=== PATIENT | male | born 1980 | race Caucasian/White ===

== ENCOUNTER 2019-01-13 10:44 | Emergency (ER) | payer BC ==
[2019-01-13 11:06] VITALS: BP 140/99
--- NOTE | 2019-01-13 12:09 | EDM.PDOCBH ---
ED HPI GENERAL MEDICAL PROBLEM - General Chief Complaint: Behavioral/Psych Stated Complaint: HEAVY BREATHING,SHARP PAIN ALL OVER FACE Time Seen by Provider: 01/13/19 11:34 Source of Information: Reports: Patient, Old Records History Limitations: Reports: No Limitations - History of Present Illness INITIAL COMMENTS - FREE TEXT/NARRATIVE: 38-year-old male presents for evaluation and treatment of anxiety. Patient reports about 1-2 hours prior to arrival in the ER he was checking some frustrating emails. He states that he began to feel anxious. He felt reports his face felt hot and heat Nepali start stabbing pains in his face. States he had a hard time breathing. He states that the symptoms are significantly improved now. States he is nearly back to his baseline. He reports her palpitations. And asked if he had any chest pain he states "kind of ". He states a history of neck and back pain is not sure if that's what he was experiencing. Patient acknowledges that he struggles with anxiety. He takes Zoloft 50 mg daily. He did taken an additional 25 mg by accident today. Patient reports history of digestive issues and states he has problems with heart. Reports a significant family history of heart disease. He states that he had several uncles that of her disease in their mid to early 40s. States his father lived into his 70s. Has primary care provider here in [place] but is unsure who it is. He states he moved back to [place] in August of this year. She's never had a stress test or any type of cardiac Reports been 3 years since she's had his cholesterol checked. Acknowledges he is obese. - Related Data Allergies Allergy/AdvReac Type Severity Reaction Status Date / Time No Known Allergies Allergy Verified 07/30/14 17:09 Home Meds: Home Meds L.acidoph,Paracasei, B.lactis [Probiotic] 1 each PO DAILY 01/13/19 [History] Sertraline [Zoloft] 50 mg PO DAILY 01/13/19 [History] Past Medical History - Past Health History Medical/Surgical History: Denies Medical/Surgical History Gastrointestinal History: Reports: GERD, Other (See Below) Psychiatric History: Reports: Anxiety, Depression Endocrine/Metabolic History: Reports: Obesity/BMI 30+ - Past Surgical History GI Surgical History: Reports: Colonoscopy, EGD Social & Family History - Tobacco Use Smoking Status *Q: Current Every Day Smoker Years of Tobacco use: 1 Packs/Tins Daily: 1 - Caffeine Use Caffeine Use: Reports: Coffee, Soda - Recreational Drug Use Recreational Drug Use: No - Living Situation & Occupation Living situation: Reports: Single, Other (With friends) 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 Denies: Cough Cardiovascular: Reports: Chest Pain ("Kind of ", now resolved.), Palpitations ( Earlier, now resolved.) GI/Abdominal: Denies: Abdominal Pain, Nausea, Vomiting ED EXAM, BEHAVIORAL HEALTH - Physical Exam Exam: See Below Exam Limited By: No Limitations General Appearance: Alert, WD/WN, No Apparent Distress, Anxious Eye Exam: Bilateral Eye: Normal Inspection Ears: Normal External Exam, Normal Canal, Hearing Grossly Normal, Normal TMs ( Right, left is erythematous with a small amount of fluid present.) Throat/Mouth: Normal Inspection, Normal Lips, Normal Voice, No Airway Compromise Respiratory/Chest: No Respiratory Distress, Lungs Clear, Normal Breath Sounds Cardiovascular: Normal Peripheral Pulses, Regular Rate, Rhythm, No Murmur Neurological: Alert, Normal Mood/Affect Psychiatric: Alert, Normal Affect, Normal Cognition Skin Exam: Warm, Dry, Normal color COURSE, BEHAVIORAL HEALTH COMP - Course Vital Signs: Last Vital Signs Temp 98.7 F 01/13/19 11:02 Pulse 80 01/13/19 11:02 Resp 20 01/13/19 11:02 BP 140/99 H 01/13/19 11:02 Pulse Ox 98 01/13/19 11:02 Orders, Labs, Meds: Active Orders 24 hr Category Date Time Status EKG 12 Lead [EKG Documentation Completion] [RC] STAT Care 01/13/19 11:40 Active Laboratory Tests 01/13/19 01/13/19 Range/Units 12:34 12:34 WBC 7.92 (4.23-9.07) K/mm3 RBC 5.60 (4.63-6.08) M/mm3 Hgb 16.8 (13.7-17.5) gm/L Hct 46.0 (40.1-51.0) % MCV 82.1 (79.0-92.2) fl MCH 30.0 (25.7-32.2) pg MCHC 36.5 H (32.2-35.5) g/dl RDW Std Deviation 37.9 (35.1-43.9) fL Plt Count 234 (163-337) K/mm3 MPV 9.4 (9.4-12.3) fl Neut % (Auto) 66.5 (34.0-67.9) % Lymph % (Auto) 22.0 (21.8-53.1) % [place] % (Auto) 9.1 (5.3-12.2) % Eos % (Auto) 1.6 (0.8-7.0) Baso % (Auto) 0.5 (0.1-1.2) % Neut # (Auto) 5.27 (1.78-5.38) K/mm3 Lymph # (Auto) 1.74 (1.32-3.57) K/mm3 [place] # (Auto) 0.72 (0.30-0.82) K/mm3 Eos # (Auto) 0.13 (0.04-0.54) K/mm3 Baso # (Auto) 0.04 (0.01-0.08) K/mm3 Sodium 140 (136-145) mEq/L Potassium 3.8 (3.5-5.1) mEq/L Chloride 105 (98-107) mEq/L Carbon Dioxide 24 (21-32) mEq/L Anion Gap 14.8 (5-15) BUN 13 (7-18) mg/dL Creatinine 0.8 (0.7-1.3) mg/dL Est Cr Clr Drug Dosing 128.00 mL/min Estimated GFR (MDRD) > 60 (>60) mL/min BUN/Creatinine Ratio 16.3 (14-18) Glucose 108 H (74-106) mg/dL Calcium 9.2 (8.5-10.1) mg/dL Magnesium 1.9 (1.8-2.4) mg/dl Total Bilirubin 1.1 H (0.2-1.0) mg/dL AST 25 (15-37) U/L ALT 45 (16-63) U/L Alkaline Phosphatase 72 (46-116) U/L Troponin I < 0.017 (0.00-0.056) ng/mL Total Protein 7.1 (6.4-8.2) g/dl Albumin 3.9 (3.4-5.0) g/dl Globulin 3.2 gm/dL Albumin/Globulin Ratio 1.2 (1-2) TSH 3rd Generation 1.161 (0.358-3.74) uIU/mL Re-Assessment/Re-Exam: 12:06 EKG shows a normal sinus rhythm with a rate of 78 bpm. Q waves in 2-3 aVF. Chest x-ray shows no acute intrathoracic process. Formal radiology read is pending. Reviewed the EKG and chest x-ray at the patient. We will obtain labs as he has some Q waves in the inferior leads. No previous EKG to compare to. Offered medication for anxiety, patient reports his symptoms have resolved and he has declined. 13:30 I reviewed the lab results with the patient. We will discharge him home. Recommend follow-up with family medicine. Discharge instructions as documented. Departure - Departure Time of Disposition: 13:38 Disposition: Home, Self-Care 01 Condition: Good Clinical Impression: Anxiety - Discharge Information *PRESCRIPTION DRUG MONITORING PROGRAM REVIEWED*: No *COPY OF PRESCRIPTION DRUG MONITORING REPORT IN PATIENT KAREN: No Instructions: Generalized Anxiety Disorder, Adult Referrals: PCP,Unobtain [Ordering Only Provider] - Forms: ED Department Discharge Additional Instructions: Recommend for the fluid in the left ear and [id number] nasal spray such as Flonase or Nasonex. may also try an antihistamine such as Claritin, Payal or Zyrtec. This should resolve on its own but may take several weeks to do so. Recommend following up with family medicine. Recommend having your cholesterol checked as if it has been several years. Also recommend discussing with your family practice provider either stress test or coronary calcium score. Your family medicine provider can order these test for you on an outpatinet basis. Follow-up with your family medicine provider as needed for further management of anxiety. Rest. make sure you are drinking plenty of fluids. Please return to the ER should your symptoms change or worsen. - My Orders Last 24 Hours: My Active Orders 01/13/19 11:40 EKG 12 Lead [EKG Documentation Completion] [RC] STAT - Assessment/Plan Last 24 Hours: My Active Orders 01/13/19 11:40 EKG 12 Lead [EKG Documentation Completion] [RC] STAT
--- NOTE | 2019-01-13 15:10 | CR ---
Chest: Two views of the chest were obtained. Comparison: No previous chest x-ray. Heart size and mediastinum are normal. Lungs are clear. Bony structures show mild scattered degenerative change within the spine. Impression: 1. Incidental findings. Nothing acute is seen. Diagnostic code #2
== END 2019-01-13 13:49 | disposition home or self-care (01) ==
LOC: JD.ED 10:44
DX: F41.9 Anxiety disorder, unspecified (principal); F32.9 Major depressive disorder, single episode, unspecified; F17.210 Nicotine dependence, cigarettes, uncomplicated; Z79.899 Other long term (current) drug therapy
CPT/HCPCS: 36415; 71046; 71046-26; 80053; 83735; 84443; 84484; 85025; 93005; 99284-25

== ENCOUNTER 2019-12-13 07:47 | Emergency (ER) | payer BC ==
--- NOTE | 2019-12-13 08:43 | EDM.PDOC ---
ED HPI GENERAL MEDICAL PROBLEM - General Chief Complaint: Abdominal Pain Stated Complaint: DARK STOOLS AND PAIN IN LT SIDE Time Seen by Provider: 12/13/19 08:12 Source of Information: Reports: Patient, RN Notes Reviewed - History of Present Illness INITIAL COMMENTS - FREE TEXT/NARRATIVE: 39 year old male with concern about dark stool yesterday and today and also off and on L upper abd pain for the past couple of weeks which he has also had off and on in the past for many yrs. No nausea or vomiting. Mild diarrhea yesterday, none today. No bright blood. Left Upper Abdominal Pain Score (Numeric/FACES): 3 - Related Data Allergies Allergy/AdvReac Type Severity Reaction Status Date / Time No Known Allergies Allergy Verified 12/13/19 08:07 Home Meds: Home Meds Sertraline [Zoloft] 50 mg PO DAILY 01/13/19 [History] Past Medical History - Past Health History Medical/Surgical History: Denies Medical/Surgical History Gastrointestinal History: Reports: GERD Musculoskeletal History: Reports: Neck Pain, Chronic Neurological History: Reports: Migraines Psychiatric History: Reports: Anxiety, Depression Endocrine/Metabolic History: Reports: Obesity/BMI 30+ - Past Surgical History GI Surgical History: Reports: Colonoscopy, EGD Social & Family History - Tobacco Use Smoking Status *Q: Never Smoker - Caffeine Use Caffeine Use: Reports: Energy Drinks - Recreational Drug Use Recreational Drug Use: No - Living Situation & Occupation Living situation: Reports: Single, Other (With friends) 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 Denies: Hematemesis, Hematochezia, Nausea, Vomiting : Reports: No Symptoms Musculoskeletal: Reports: No Symptoms Skin: Reports: No Symptoms Neurological: Reports: No Symptoms ED EXAM, GI/ABD - Physical Exam Exam: See Below General Appearance: Alert, No Apparent Distress Head: Atraumatic Neck: Supple Respiratory/Chest: No Respiratory Distress, Lungs Clear Cardiovascular: Regular Rate, Rhythm GI/Abdominal Exam: Soft, Non-Tender. No: Guarding Rectal (Males) Exam: Normal Exam, Other (trace amt of dark brn stool, heme neg. ) Extremities: Normal Inspection Neurological: Alert, Oriented, No Motor/Sensory Deficits Skin Exam: Warm, Dry, Normal Color Course - Vital Signs Last Recorded V/S: Last Vital Signs Temp 97.6 F 12/13/19 08:05 Pulse 66 12/13/19 08:05 Resp 16 12/13/19 08:05 BP 133/91 H 12/13/19 08:05 Pulse Ox 94 L 12/13/19 08:05 Departure - Departure Time of Disposition: 08:42 Disposition: Home, Self-Care 01 Condition: Fair Clinical Impression: Abdominal pain Qualifiers: Abdominal location: upper abdomen, unspecified Qualified Code(s): R10.10 - Upper abdominal pain, unspecified - Discharge Information Referrals: PCP,None [Primary Care Provider] - Forms: ED Department Discharge Additional Instructions: There was no evidence of blood in your stool at this time, avoid alcohol, spicy food for now, pepcid or prilosec OTC as needed. Follow up with your regular medical provider as needed, return to ED as needed if symptoms worsening in any way. Sepsis Event Note - Evaluation Sepsis Screening Result: No Definite Risk - Focused Exam Vital Signs: Vital Signs Temp Pulse Resp BP Pulse Ox 12/13/19 08:05 97.6 F 66 16 133/91 H 94 L Date Exam was Performed: 12/13/19 Time Exam was Performed: 08:43
== END 2019-12-13 08:47 | disposition home or self-care (01) ==
LOC: JD.ED 07:47
CPT/HCPCS: 99282; 99283

== ENCOUNTER 2020-07-10 23:06 | Emergency (ER) | payer BC ==
[2020-07-10 23:19] VITALS: BP 131/91; PULSE 75
--- NOTE | 2020-07-11 00:07 | EDM.PDOC ---
ED HPI GENERAL MEDICAL PROBLEM - General Chief Complaint: ENT Problem Stated Complaint: OBJECT STUCK IN NOSE Time Seen by Provider: 07/10/20 23:39 Source of Information: Reports: Patient, RN Notes Reviewed - History of Present Illness INITIAL COMMENTS - FREE TEXT/NARRATIVE: wears sinus spacers, cut the plastic attatchment that keeps them from going up too far in the nares so he could get them up further. Now unable to get them out. Has been using them for some time. - Related Data Allergies Allergy/AdvReac Type Severity Reaction Status Date / Time No Known Allergies Allergy Verified 07/10/20 23:19 Home Meds: Home Meds Sertraline [Zoloft] 50 mg PO DAILY 01/13/19 [History] Past Medical History - Past Health History Medical/Surgical History: Denies Medical/Surgical History Gastrointestinal History: Reports: GERD Musculoskeletal History: Reports: Neck Pain, Chronic Neurological History: Reports: Migraines Psychiatric History: Reports: Anxiety, Depression Endocrine/Metabolic History: Reports: Obesity/BMI 30+ - Past Surgical History GI Surgical History: Reports: Colonoscopy, EGD Social & Family History - Tobacco Use Tobacco Use Status *Q: Current Every Day Tobacco User Years of Tobacco use: 10 Packs/Tins Daily: 1 - Caffeine Use Caffeine Use: Reports: Energy Drinks - Living Situation & Occupation Living situation: Reports: Single, Other (With friends) 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 Denies: Shortness of Breath Cardiovascular: Reports: No Symptoms GI/Abdominal: Reports: No Symptoms Neurological: Reports: No Symptoms ED EXAM, ENT - Physical Exam Exam: See Below General Appearance: Alert, No Apparent Distress Nose: Other (At time of exam he had managed to blow R spacer out. plastic spacer visible high up L nares, R nares mildly inflamed, no visible FB R nares) Head: Atraumatic Neck: Supple Respiratory/Chest: No Respiratory Distress Neurological: Alert, Oriented, No Motor/Sensory Deficits Skin: Warm, Dry, Normal Color Course - Vital Signs Last Recorded V/S: Last Vital Signs Temp 97.6 F 07/10/20 23:15 Pulse 75 07/10/20 23:15 Resp 16 07/10/20 23:15 BP 131/91 H 07/10/20 23:15 Pulse Ox 99 07/10/20 23:15 - Re-Assessments/Exams Free Text/Narrative Re-Assessment/Exam: 07/11/20 00:35 with hand held light able to reach up into L nares and remove plastic spacer wi thout difficulty. No bleeding or complications. Departure - Departure Time of Disposition: 00:05 Disposition: Home, Self-Care 01 Condition: Fair Clinical Impression: Acute foreign body of nose Qualifiers: Encounter type: initial encounter Qualified Code(s): S00.35XA - Superficial foreign body of nose, initial encounter - Discharge Information Referrals: PCP,None [Primary Care Provider] - Forms: ED Department Discharge Additional Instructions: Continue nasal spray. The dry air we have this time of year is going to be more irritating to your nose. Try increasing humidity of your home as discussed. Follow up clinic as needed. Sepsis Event Note (ED) - Evaluation Sepsis Screening Result: No Definite Risk - Focused Exam Vital Signs: Vital Signs Temp Pulse Resp BP Pulse Ox 07/10/20 23:15 97.6 F 75 16 131/91 H 99
== END 2020-07-11 00:14 | disposition home or self-care (01) ==
LOC: JD.ED 23:06
DX: T17.1XXA Foreign body in nostril, initial encounter (principal); F41.9 Anxiety disorder, unspecified; F32.9 Major depressive disorder, single episode, unspecified; E66.9 Obesity, unspecified; Z68.34 Body mass index [BMI] 34.0-34.9, adult; F17.210 Nicotine dependence, cigarettes, uncomplicated
CPT/HCPCS: 30300; 99282